=== PATIENT | female | born 1965 | race Caucasian/White ===

== ENCOUNTER 2023-10-08 10:40 | Outpatient (CLI) | payer OTHER ==
--- NOTE | 2023-10-08 14:46 | MRI Report ---
PROCEDURE: KNEE WO - RT INDICATIONS: RIGHT KNEE PAIN TECHNIQUE: Noncontrast sagittal PD fast spin echo and T2 fast spin echo with fat saturation, sagittal 3-D spoile d GE with fat saturation; coronal T1 spin echo and PD fast spin echo with fat saturation, and axial P D fast spin echo with fat saturation through the knee. COMPARISON: None. FINDINGS: Image quality: Excellent. Anterior cruciate ligament: Intact. Posterior cruciate ligament: Intact. Medial collateral ligament: Intact. Lateral collateral ligament: Intact. Medial meniscus: Intact. Lateral meniscus: There is complex tearing of the lateral meniscus with horizontal oblique component s at the anterior horn and body extending to the femoral and tibial articular surfaces. The anterior horn appears mildly diminutive and may be degenerated. Probable horizontal oblique component also see n at the posterior horn extending to the tibial articular surface. Medial and lateral tendons: The semimembranosus tendon insertions appear intact. Visualized portion s of the pes anserinus tendons appear normal. The popliteus tendon appears intact. Iliotibial band appears normal. Anterior structures: The patellar tendon and the distal quadriceps tendon appear intact. No patellar subluxation. No femoral trochlear dysplasia or ventral trochlear prominence. Mild scarring is seen in the infrapatellar fat pad. Bones: No acute trabecular bone injury or fracture. Medial femorotibial cartilage: Mild partial thickness cartilage thinning. Lateral femorotibial cartilage: Mild partial thickness cartilage thinning. Patellofemoral cartilage: Mild partial thickness cartilage thinning without a focal defect. Soft tissues: There is a small joint effusion. A small medial popliteal cyst is seen with an 11 mm intracystic osseous loose body. The musculature surrounding the knee is normal in bulk. IMPRESSION: 1.Complex tearing of the lateral meniscus with horizontal oblique components extending to the tibial and femoral articular surfaces. Anterior horn appears mildly diminutive and may be degenerated. 2.No acute trabecular bone injury. Cruciate and collateral ligaments are intact. 3.Mild tricompartmental grade II chondromalacia. 4.Small joint effusion. Small medial popliteal cyst with intracystic ossified loose body. Reviewed by: Richard Rios MD on 10/08/2023 2:45 PM PST Approved by: Richard Rios MD on 10/08/2023 2:45 PM PST Station ID: [id number]
== END 2023-10-08 10:41 | disposition home or self-care (01) ==
LOC: DI 10:40
PROVIDERS: ATTEND Nurse Practitioner Family
DX: S83.271A Complex tear of lateral meniscus, current injury, right knee, initial encounter (principal); M94.261 Chondromalacia, right knee; M25.461 Effusion, right knee; M71.21 Synovial cyst of popliteal space [Baker], right knee

== ENCOUNTER 2023-12-17 08:00 | Outpatient (CLI) | payer OTHER ==
--- NOTE | 2023-12-17 15:57 | XRAY Report ---
PROCEDURE: Knee 4 View RT INDICATIONS: RIGHT KNEE PAIN TECHNIQUE: 4 views of the knee(s) were acquired. COMPARISON: MRI knee 10/08/2023 FINDINGS: Bones: No fractures or dislocations. No suspicious bony lesions. Mild to moderate tricompartmenta l narrowing on the right most severe laterally. The left knee demonstrates mild to moderate bicompart mental narrowing most notable on the medial compartment. Bilateral very minimal appearance of early p eriarticular osteophytes. No erosions. Soft tissues: No knee joint effusion. No suspicious soft tissue calcifications or masses. 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 Reviewed by: Demi King MD on 12/17/2023 3:56 PM PDT Approved by: Demi King MD on 12/17/2023 3:56 PM PDT Station ID: [id number]
== END 2023-12-17 23:59 | disposition home or self-care (01) ==
LOC: DI.WOS 08:00
PROVIDERS: ATTEND Orthopaedic Surgery
DX: M17.0 Bilateral primary osteoarthritis of knee (principal)